=== PATIENT | male | born 2000 | race Caucasian/White ===

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

== ENCOUNTER → 2019-01-26 | Day surgery (SDC) | payer OTHER ==
[~2019-01-26] VITALS: Ht 170.1 cm; Wt 77.6 kg
[~2019-01-26] MED LIST changes: +AVPAK AZITHROM250 MG PO; +BISMATROL262 MG/15 PO; +DICYCLOMINE HCL10 MG PO; +IBU800 M1 PO; +MIRALAX POWDER17 G1 PO; +PANTOPRAZOLE SO40 MG PO; +PREDNISONE50 MG PO; +PROAIR HFA8.5 GM INH; +PROTONIX40 MG PO
--- NOTE | ~2019-01-26 | PROC NOTE ---
[place], [place] PROCEDURE NOTE NAME: SARWAT MOSLEY UNIT #: [id number] ROOM: DOCTOR: MARTIN BOATENG MD BIRTHDATE: [birth year] DOS: 01/26/2019 PREOPERATIVE DIAGNOSES: Gastroesophageal reflux disease, chronic constipation. POSTOPERATIVE DIAGNOSES: Gastritis, gastric ulcer (lesser curvature), colon polyp (70 cm). PROCEDURE: EGD, colonoscopy with polypectomy x 1. ENDOSCOPIST: Martin Boateng MD NON LICENSED NUCLEAR EQUIPMENT OPERATOR: RACHEL. ANESTHESIA: MAC. INDICATIONS: This is a 18-year-old gentleman with a history of chronic GERD and constipation, who is here for the above-mentioned procedure. The procedure and its complications were explained to the patient in detail preoperatively. Complications that were discussed included but were not limited to, bleeding, stomach perforation, missed lesions and colon perforation. He agreed to proceed. DESCRIPTION OF PROCEDURE: After identifying the patient, the patient was brought to the endoscopy suite and placed in the left lateral position. After time-out procedure was called. IV sedation was administered by the anesthesia team and a bite block was placed. Gastroscope was now passed from the mouth into the pharynx, esophagus, stomach and the first 2 parts of the duodenum. The duodenum was found to be within normal limits. There was found to be mild gastritis in the antrum and body of the stomach. Also, upon retroflexion, there was found to be a superficial ulcer in the region of the lesser curve just adjacent to the gastroesophageal junction. Upon further withdrawal of the scope, the esophagus was visualized. There was no evidence of esophagitis or any lesions seen in the esophagus. The scope was removed and attention was turned towards the colonoscopy. Digital rectal exam was performed, which was within normal limits. An adult colonoscope was now introduced into the anal canal and advanced sequentially into the rectum, sigmoid colon, descending colon, transverse colon, and ascending colon up to the cecum. Upon reaching the cecum, the scope was withdrawn. Total withdrawal time was approximately 7 minutes. There was a single polyp visualized at approximately 70 cm from the anal verge, which was removed with the help of polypectomy forceps and sent for histopathological diagnosis. After hemostasis was confirmed, the scope was withdrawn. Total withdrawal time was approximately 7 minutes. The patient was then brought back to the recovery room in stable fashion. There were no complications. Based on these findings, the patient is recommended to have another colonoscopy in 5-10 years or sooner if he has no symptoms. These findings will be discussed with the patient's mom in the recovery room. [place], [place] PROCEDURE NOTE NAME: SARWAT MOSLEY UNIT #: [id number] ROOM: DOCTOR: MARTIN BOATENG MD BIRTHDATE: [birth year] Martin Boateng MD CM:PROCNOTE:PROCEDURE NOTE [id number] MARTIN BOATENG MD
[2019-01-26 07:02] VITALS: BP 128/80
[2019-01-26 07:46] VITALS: BP 97/42
[2019-01-26 08:01] VITALS: BP 99/49
[2019-01-26 08:16] VITALS: BP 98/58
== END | disposition home or self-care (01) ==
LOC: SDC 01-24 12:30
DX: D12.9 Benign neoplasm of anus and anal canal (principal); K29.70 Gastritis, unspecified, without bleeding; K25.9 Gastric ulcer, unspecified as acute or chronic, without hemorrhage or perforation; K21.9 Gastro-esophageal reflux disease without esophagitis; K59.04 Chronic idiopathic constipation; F90.9 Attention-deficit hyperactivity disorder, unspecified type; Z98.890 Other specified postprocedural states; Z79.899 Other long term (current) drug therapy; Z82.49 Family history of ischemic heart disease and other diseases of the circulatory system; Z80.9 Family history of malignant neoplasm, unspecified

== ENCOUNTER 2019-05-08 00:20 | Emergency (ER) | payer OTHER ==
[~2019-05-08] VITALS: Wt 72.6 kg
--- NOTE | ~2019-05-08 | EKG ---
[place], [place] ELECTROCARDIOGRAM REPORT NAME: SARWAT MOSLEY UNIT #: [id number] ROOM: DOCTOR: EPIPHANY DRAFT REPORT BIRTHDATE: [birth year] [facility] Test Date: 2019-05-08 Test Time: 00:54:41 Pat Name: SARWAT MOSLEY Department: Room: Gender: Station Worker: Myra Emery : 2000 Requested By: YAS RAAY Order Number: [id number] Reading MD: Von Hearn MD Measurements Intervals Dale Rate: 78 P: 41 MN: 124 QRS: 40 QRSD: 99 T: 41 QT: 372 QTc: 424 Interpretive Statements Sinus rhythm Normal ECG Electronically Signed On 05-08-2019 15:02:37 PDT by Von Hearn MD CM:EKGRPT:ELECTROCARDIOGRAM REPORT [id number] YAS DALLAS DRAFT REPORT YAS RAYA DO
[2019-05-08 01:07] LABS: BASO % 0.3 % (0.0-1.0); EOS # 0.1 10*3/uL (0.0-0.4); EOS % 0.7 % (1.0-4.0); HEMATOCRIT 42.1 % (42.0-52.0); HEMOGLOBIN 15.2 g/dl (14.0-18.0); LYMPH # 1.1 10*3/uL (1.3-4.4); LYMPH % 9.2 % (27.0-41.0); MEAN CELL VOLUME 82.2 fl (80.0-94.0); MEAN CORPUSCULAR HGB 29.7 pg (27.0-31.0); MEAN CORPUSCULAR HGB CONC 36.1 g/dl (33.0-37.0); MEAN PLATELET VOLUME 9.8 fl (9.6-12.3); MONO # 0.7 10*3/uL (0.1-1.0); MONO % 5.5 % (3.0-9.0); NEUT # 10.4 10*3/uL (2.3-7.9); PLATELET COUNT AUTOMATED 206 10*3/uL (130-400); RED BLOOD COUNT 5.12 10*6/uL (4.50-5.90); RED CELL DISTRI WIDTH 12.1 % (0-14.5); WHITE BLOOD COUNT 12.3 10*3/uL (4.8-10.8)
[2019-05-08 01:14] VITALS: BP 127/68
[2019-05-08 01:24] LABS: ALBUMIN 4.1 gm/dl (3.1-4.5); ALKALINE PHOSPHATASE 75 U/L (45-117); BUN 13 mg/dl (7-24); CHLORIDE 111 mmol/L (98-107); CREATININE 1.03 mg/dL (0.70-1.30); POTASSIUM 3.4 mmol/L (3.5-5.1); SGOT/AST 14 IU/L (3-35); SGPT/ALT 21 U/L (12-78); SODIUM 142 mmol/L (136-145); TOTAL PROTEIN 7.8 gm/dL (6.4-8.2)
[2019-05-08 01:26] LABS: TROPONIN I < 0.015 ng/ml (<0.045)
== END 2019-05-08 02:35 | disposition home or self-care (01) ==
LOC: ED 00:20
PROVIDERS: Student in an Organized Health Care Education/Training Program
DX: R20.2 Paresthesia of skin (principal); R20.0 Anesthesia of skin; M25.642 Stiffness of left hand, not elsewhere classified; M25.641 Stiffness of right hand, not elsewhere classified; F41.9 Anxiety disorder, unspecified; Z79.899 Other long term (current) drug therapy

== ENCOUNTER → 2019-05-08 | Outpatient (CLI) | payer OTHER | END | disposition home or self-care (01) | LOC: CT 13:00 | DX: R51 Headache (principal); R53.1 Weakness; R20.0 Anesthesia of skin; R20.2 Paresthesia of skin; R25.3 Fasciculation; R40.20 Unspecified coma; R42 Dizziness and giddiness; R11.0 Nausea ==

== ENCOUNTER 2019-09-07 04:22 | Emergency (ER) | payer OTHER ==
[~2019-09-07] VITALS: Ht 170.1 cm; Wt 74.8 kg
[2019-09-07 04:23] VITALS: BP 126/70
[2019-09-07 05:10] LABS: BASO # 0.1 10*3/uL (0.0-0.1); BASO % 0.9 % (0.0-1.0); EOS # 0.7 10*3/uL (0.0-0.4); EOS % 12.1 % (1.0-4.0); HEMATOCRIT 42.6 % (42.0-52.0); HEMOGLOBIN 15.4 g/dl (14.0-18.0); LYMPH # 1.8 10*3/uL (1.3-4.4); LYMPH % 33.1 % (27.0-41.0); MEAN CELL VOLUME 82.4 fl (80.0-94.0); MEAN CORPUSCULAR HGB 29.8 pg (27.0-31.0); MEAN CORPUSCULAR HGB CONC 36.2 g/dl (33.0-37.0); MEAN PLATELET VOLUME 9.4 fl (9.6-12.3); MONO # 0.4 10*3/uL (0.1-1.0); MONO % 7.1 % (3.0-9.0); NEUT # 2.5 10*3/uL (2.3-7.9); NEUT % 46.6 % (47.0-73.0); PLATELET COUNT AUTOMATED 220 10*3/uL (130-400); RED BLOOD COUNT 5.17 10*6/uL (4.50-5.90); RED CELL DISTRI WIDTH 12.1 % (0-14.5); WHITE BLOOD COUNT 5.4 10*3/uL (4.8-10.8)
[2019-09-07 05:26] LABS: ALBUMIN 4.2 gm/dl (3.1-4.5); ALKALINE PHOSPHATASE 71 U/L (45-117); BUN 13 mg/dl (7-24); CHLORIDE 112 mmol/L (98-107); POTASSIUM 3.3 mmol/L (3.5-5.1); SGOT/AST 10 IU/L (3-35); SGPT/ALT 20 U/L (12-78); SODIUM 144 mmol/L (136-145)
[2019-09-07 05:46] LABS: BILIRUBIN NEGATIVE (NEGATIVE); BLOOD 1+ (NEGATIVE); CLARITY SL CLOUDY (CLEAR); COLOR YELLOW (YELLOW); GLUCOSE NEGATIVE (NEGATIVE); KETONE NEGATIVE (NEGATIVE); LEUKO ESTERASE NEGATIVE (NEGATIVE); NITRITE NEGATIVE (NEGATIVE); PH 6.5 (5.0-9.0); SPECIFIC GRAVITY 1.025 (1.005-1.030)
[2019-09-07 06:04] LABS: BACTERIA TRACE; CALCIUM OXALATE CRYSTALS 2+; EPITHELIAL CELLS 0-2; MUCOUS 2+; WBC 0-2 wbc/hpf (0-5)
== END 2019-09-07 09:24 | disposition home or self-care (01) ==
LOC: ED 04:22
PROVIDERS: Emergency Medicine
DX: R10.31 Right lower quadrant pain (principal); R19.7 Diarrhea, unspecified; K21.9 Gastro-esophageal reflux disease without esophagitis; Z79.899 Other long term (current) drug therapy

== ENCOUNTER → 2019-09-18 | Outpatient (CLI) | payer OTHER ==
[2019-09-18 15:05] LABS: BASO % 0.6 % (0.0-1.0); EOS # 0.6 10*3/uL (0.0-0.4); EOS % 11.5 % (1.0-4.0); HEMATOCRIT 43.6 % (42.0-52.0); HEMOGLOBIN 15.4 g/dl (14.0-18.0); LYMPH % 40.7 % (27.0-41.0); MEAN CORPUSCULAR HGB 29.3 pg (27.0-31.0); MEAN CORPUSCULAR HGB CONC 35.3 g/dl (33.0-37.0); MEAN PLATELET VOLUME 9.7 fl (9.6-12.3); MONO # 0.3 10*3/uL (0.1-1.0); MONO % 6.4 % (3.0-9.0); NEUT % 40.8 % (47.0-73.0); PLATELET COUNT AUTOMATED 200 10*3/uL (130-400); RED BLOOD COUNT 5.25 10*6/uL (4.50-5.90); RED CELL DISTRI WIDTH 12.2 % (0-14.5); WHITE BLOOD COUNT 4.9 10*3/uL (4.8-10.8)
[2019-09-18 15:34] LABS: ALBUMIN 4.2 gm/dl (3.1-4.5); ALKALINE PHOSPHATASE 70 U/L (45-117); BUN 13 mg/dl (7-24); CHLORIDE 110 mmol/L (98-107); CREATININE 0.96 mg/dL (0.70-1.30); IRON 73 ug/dL (65-175); POTASSIUM 3.9 mmol/L (3.5-5.1); SGOT/AST 5 IU/L (3-35); SGPT/ALT 17 U/L (12-78); SODIUM 141 mmol/L (136-145); TOTAL IRON BINDING CAPACITY 241 ug/dl (250-450); TOTAL PROTEIN 7.7 gm/dL (6.4-8.2)
[2019-09-18 15:54] LABS: FERRITIN 183.3 ng/mL (22.0-322.0); VITAMIN D, 25-HYDROXY 14.7 ng/mL (30-100)
== END | disposition home or self-care (01) ==
LOC: LAB 14:30
PROVIDERS: Student in an Organized Health Care Education/Training Program
DX: K92.9 Disease of digestive system, unspecified (principal); R63.4 Abnormal weight loss; R53.83 Other fatigue

== ENCOUNTER 2020-07-01 14:40 | Emergency (ER) | payer OTHER ==
[2020-07-01 14:50] VITALS: BP 102/60
== END 2020-07-01 17:09 | disposition home or self-care (01) ==
LOC: ED 14:40
DX: S02.2XXA Fracture of nasal bones, initial encounter for closed fracture (principal); Z79.899 Other long term (current) drug therapy; W51.XXXA Accidental striking against or bumped into by another person, initial encounter; Y93.89 Activity, other specified; Y92.89 Other specified places as the place of occurrence of the external cause; Y99.8 Other external cause status